=== PATIENT | female | born 1940 | race Caucasian/White ===

== ENCOUNTER 2017-05-22 15:04 | Emergency (ER) | payer OTHER, MEDICARE ==
[~2017-05-22] VITALS: Ht 160 cm; Wt 47.6 kg
[~2017-05-22 15:04] MED LIST: ACETAMINOPHEN325 M1 PO; AGGRENOX 25 MG1 EACH PO; ASPIRIN325 PO; ATORVASTATIN CA20 MG PO; COLACE 100 MG100 MG PO; COLACE100 MG PO; FOSAMAX 70 MG T70 M1 PO; GLYCOLAX POWDER17 G1 PO; KEFLEX500 MG PO; LEVOTHYROXIN0.075 MG PO; LIPITOR40 MG PO; MIRALAX17 GM PO; NORCO 5-325 TA1 EACH PO; PLAVIX 75 MG TA75 M1 PO; SENNA PO; SENSIPAR 30 MG30 M1 PO; SENSIPAR60 MG PO; SYNTHROID50 MCG PO; SYNTHROID75 MCG PO; VITAMIN D1000 UNI1 PO
[2017-05-22 16:47] VITALS: BP 169/76
[2017-07-25] MEDS ORDERED: DOXYCYCLINE 10100 MG PO (09:55)
== END 2017-05-22 16:48 | disposition home or self-care (01) ==
LOC: ER 15:04
DX: S01.01XA Laceration without foreign body of scalp, initial encounter (principal); E03.9 Hypothyroidism, unspecified; Z88.1 Allergy status to other antibiotic agents; Z87.891 Personal history of nicotine dependence; W19.XXXA Unspecified fall, initial encounter; Y93.89 Activity, other specified; Y92.89 Other specified places as the place of occurrence of the external cause; Y99.8 Other external cause status

== ENCOUNTER 2017-06-01 10:26 | Emergency (ER) | payer OTHER, MEDICARE ==
[~2017-06-01] VITALS: Ht 160 cm; Wt 47.6 kg
[2017-06-01 10:36] VITALS: BP 144/72
[2017-07-25] MEDS ORDERED: DOXYCYCLINE 10100 MG PO (09:55)
== END 2017-06-01 10:40 | disposition home or self-care (01) ==
LOC: ER 10:26
DX: S01.01XD Laceration without foreign body of scalp, subsequent encounter (principal); E03.9 Hypothyroidism, unspecified; M81.0 Age-related osteoporosis without current pathological fracture; Z85.89 Personal history of malignant neoplasm of other organs and systems; Z88.8 Allergy status to other drugs, medicaments and biological substances; Z87.891 Personal history of nicotine dependence; X58.XXXD Exposure to other specified factors, subsequent encounter

== ENCOUNTER 2017-07-30 09:40 | Emergency (ER) | payer OTHER, MEDICARE ==
[~2017-07-30] VITALS: Ht 149.9 cm; Wt 46.7 kg
[~2017-07-30 09:40] MED LIST changes: +DOXYCYCLINE 10100 MG PO
[2017-07-30] MEDS ORDERED: MUPIROCIN1 GM TOP (09:56)
[2017-07-30] MEDS ORDERED: ASPIRIN325 PO (09:56)
== END 2017-07-30 10:21 | disposition home or self-care (01) ==
LOC: ER 09:40
DX: L03.012 Cellulitis of left finger (principal); F17.210 Nicotine dependence, cigarettes, uncomplicated; E03.9 Hypothyroidism, unspecified; M81.0 Age-related osteoporosis without current pathological fracture; Z88.1 Allergy status to other antibiotic agents